=== PATIENT | female | born 1990 | race Caucasian/White ===

== ENCOUNTER 2019-01-13 00:29 | Emergency (ER) | payer SELFPAY ==
[~2019-01-13] VITALS: Ht 162.6 cm; Wt 59.1 kg
[2019-01-13 00:35] VITALS: Ht 162.6 cm; Wt 59.1 kg
[2019-01-13] MEDS ORDERED: IBUPROFEN 800 MG TAB PO ONE (03:30)
[2019-01-13] MEDS ORDERED: IBUP800T48 PO (04:03)
[2019-01-13 04:18] VITALS: BP 99/60; PULSE 71; RESP 16
--- NOTE | 2019-01-13 04:24 | ERD ---
ER Documentation Chief Complaint Chief Complaint R rib pain radiating to R neck X 1 day, pain with inspiration HPI 28-year-old female who presents to the emergency room complaining of right-sided rib pain. Patient describes right-sided rib and flank pain for approximately 24 hours. She describes it is pleuritic. Occasionally slightly worse with movement. No cough no shortness of breath. Patient denies any recent travel, immobilization, calf swelling, OCP or family history of DVT or pulmonary embolism. Patient denies any chest pressure or exertional symptoms. Motrin alleviated the symptoms. ROS All systems reviewed and are negative except as per history of present illness. Medications Home Meds Active Scripts Ibuprofen* (Motrin*) 800 Mg Tab, 800 MG PO Q6H PRN for PAIN AND OR ELEVATED TEMP, #30 TAB Prov:BRITANY NARANJO MD 01/13/19 Allergies Allergies: Coded Allergies: lidocaine (Verified Allergy, Unknown, 01/13/19) PMhx/Soc Medical and Surgical Hx: pt denies Medical Hx, pt denies Surgical Hx Hx Alcohol Use: No Hx Substance Use: No Hx Tobacco Use: No Smoking Status: Never smoker FmHx Family History: No diabetes Physical Exam Vitals Vital Signs Date Temp Pulse Resp B/P (MAP) Pulse Ox O2 O2 Flow FiO2 Time Delivery Rate 01/13/19 71 16 99/60 (73) 99 Room Air 04:18 01/13/19 97.4 83 18 122/80 99 00:35 (94) Physical Exam General: Well developed, well nourished, no acute distress Head: Normocephalic, atraumatic. Eyes: Pupils equally reactive, EOM intact ENT: Moist mucous membranes Neck: Supple, no lymphadenopathy Respiratory: Lungs clear bilaterally, no distress Cardiovascular: RRR, no murmurs, rubs, or gallops Abdominal: Soft, non-tender, non-distended, no peritoneal signs : Deferred MSK: No edema, no unilateral swelling, 5/5 strength Neurologic: Alert and oriented, moving all extremities, normal speech, no focal weakness, no cerebellar signs Skin: No rash Psych: Normal mood Results 24 hrs Laboratory Tests Test 01/13/19 03:20 POC Beta HCG, Qualitative NEGATIVE Current Medications Medications Dose Sig/Terrance Start Time Status Last (Trade) Ordered Route PRN Stop Time Admin Dose Reason Admin Ibuprofen 800 mg ONCE ONCE 01/13/19 DC 01/13/19 (Motrin) PO 03:30 03:24 01/13/19 03:31 Procedures/MDM EKG, MONITORS, & DIAGNOSTIC IMAGING: EKG: I reviewed and interpreted a 12-lead EKG. Rhythm: Normal sinus rhythm ST Changes: No contiguous ST segment elevations T waves: No contiguous T wave inversions Impression: No evidence of acute cardiac ischemia Chest x-ray: I reviewed and interpreted a 2 view of the chest Mediastinum: No enlargement Cardiac silhouette: No cardiomegaly Airspace: Clear lung [place] bilaterally without evidence of pneumothorax Bones: No evidence of fracture MEDICAL DECISION MAKING: The patient meets the PERC RULE out criteria. Thus, less than 2% risk of pulmonary embolism with better alternative diagnosis. No indication for d-dimer or CT pulmonary angiogram at this time. Clinical exam most consistent with likely pleurisy. The patient has No risk factors for pulmonary embolism, and based on the PERC rule out criteria does not require a d-dimer. I believe an EKG and chest x-ray to rule out pneumothorax or pneumonia would be appropriate. The patient has no signs or symptoms concerning for other serious etiology such as acute coronary syndrome or dissection. Given likelihood of pleurisy, nonsteroidal anti-inflammatory treatment will be most appropriate. I did discuss return precautions including worsening symptoms, near syncope, syncope. The patient feels comfortable with the plan. ER COURSE: * Motrin provided * diagnostic imaging negative. The patient can be safely discharged CONSULTATION: None DISPOSITION PLAN: The patient does not have an identifiable emergent medical condition that warrants inpatient hospitalization at this time. The patient is deemed safe for discharge with outpatient follow-up. We discussed follow up with the patient's primary care doctor within 24 to 48 hours as needed. We also discussed return to the emergency room for worsening symptoms or worsening condition. Outpatient referral: None required Discharge Medications: Motrin . Departure Diagnosis: Primary Impression: Pleurisy Condition: Stable Patient Instructions: Pleurisy Referrals: COMMUNITY CLINICS YOU HAVE RECEIVED A MEDICAL SCREENING EXAM AND THE RESULTS INDICATE THAT YOU DO NOT HAVE A CONDITION THAT REQUIRES URGENT TREATMENT IN THE EMERGENCY DEPARTMENT. FURTHER EVALUATION AND TREATMENT OF YOUR CONDITION CAN WAIT UNTIL YOU ARE SEEN IN YOUR DOCTORS OFFICE WITHIN THE NEXT 1-2 DAYS. IT IS YOUR RESPONSIBILITY TO MAKE AN APPOINTMENT FOR FOLOW-UP CARE. IF YOU HAVE A PRIMARY DOCTOR --you should call your primary doctor and schedule an appointment IF YOU DO NOT HAVE A PRIMARY DOCTOR YOU CAN CALL OUR PHYSICIAN REFERRAL HOTLINE AT IF YOU CAN NOT AFFORD TO SEE A PHYSICIAN YOU CAN CHOSE FROM THE FOLLOWING [facility] [address] [facility] [address] [facility] [address] [facility] [address] [facility] [address] [facility]. [facility] [address] [facility]. [facility] YOU HAVE RECEIVED A MEDICAL SCREENING EXAM AND THE RESULTS INDICATE THAT YOU DO NOT HAVE A CONDITION THAT REQUIRES URGENT TREATMENT IN THE EMERGENCY DEPARTMENT. FURTHER EVALUATION AND TREATMENT OF YOUR CONDITION CAN WAIT UNTIL YOU ARE SEEN IN YOUR DOCTORS OFFICE WITHIN THE NEXT 1-2 DAYS. IT IS YOUR RESPONSIBILITY TO MAKE AN APPOINTMENT FOR FOLOW-UP CARE. IF YOU HAVE A PRIMARY DOCTOR --you should call your primary doctor and schedule and appointment IF YOU DO NOT HAVE A PRIMARY DOCTOR YOU CAN CALL OUR PHYSICIAN REFERRAL HOTLINE AT . IF YOU CAN NOT AFFORD TO SEE A PHYSICIAN YOU CAN CHOSE FROM THE FOLLOWING [facility]: [facility] [address] [place] [address] [facility] [address] [place] [address] [facility] [address] [place] [address] Additional Instructions: Please return for any worsening symptoms, trouble breathing, near fainting or fa inting episodes. Call your primary care doctor TOMORROW for an appointment during the next 1 WEEK.Tell the secretary receptionist that you were referred from this facility.See the doctor sooner or return here if your condition worsens before your appointment time. BRITANY NARANJO MD Jan 13, 2019 04:24
== END 2019-01-13 04:20 | disposition home or self-care (01) ==
LOC: E/R 00:29
DX: R09.1 Pleurisy (principal)
CPT/HCPCS: 71046; 81025; 93005